=== PATIENT | male | born 1955 | race African-American/Black ===

== ENCOUNTER → 2016-12-02 | Emergency (ER) | payer OTHER ==
[~2016-12-02] VITALS: Ht 170.2 cm; Wt 95.2 kg
== END | disposition home or self-care (01) ==
LOC: CFTX 10:48 → CED 10:48 → CFTX 11:17
DX: S01.91XD Laceration without foreign body of unspecified part of head, subsequent encounter (principal); R03.0 Elevated blood-pressure reading, without diagnosis of hypertension; X58.XXXD Exposure to other specified factors, subsequent encounter
CPT/HCPCS: 99281